=== PATIENT | female | born 1970 | race Caucasian/White ===

== ENCOUNTER → 2017-05-15 | Outpatient (CLI) | payer BC ==
[~2017-05-15] MED LIST: ASCO500T16 PO; MULTTAB58 PO
--- NOTE | 2017-05-16 13:21 | MAMMOGRAPHY REPORT ---
BILATERAL DIGITAL SCREENING MAMMOGRAM TOMOSYNTHESIS WITH CAD: 05/15/2017 CLINICAL HISTORY: Routine screening. Patient has no complaints. TECHNIQUE: Breast tomosynthesis in addition to standard 2D mammography was performed. Current study was also evaluated with a Computer Aided Detection (CAD) system. COMPARISON: Comparison is made to exams dated: 05/25/2015 mammogram, 05/24/2014 mammogram, 04/28/2013 m ammogram, 04/27/2012 mammogram, 04/25/2011 mammogram, and 02/05/2010 mammogram - [facility] enter. BREAST COMPOSITION: The tissue of both breasts is heterogeneously dense, which may obscure small mas ses. FINDINGS: There is a round partially circumscribed and partially obscured 6 mm mass seen within the right 12:00 breast on the tomosynthesis images, for which ultrasound and possible additional spot com pression views are recommended for further evaluation. This may represent a cyst. The remainder of both breasts are stable compared to prior exams, without suspicious masses, calcific ations, or areas of architectural distortion noted. IMPRESSION: ACR BI-RADS CATEGORY 0: INCOMPLETE EVALUATION: NEED ADDITIONAL IMAGING EVALUATION Right 12:00 breast mass, for which additional imaging evaluation is recommended. The patient will be called to schedule an appointment. Approximately 10% of breast cancers are not detected with mammography. A negative mammographic report should not delay biopsy if a clinically suggestive mass is present. Sandra Quevedo M.D. /:05/15/2017 16:44:39 Glass Smoother: Yanna BONILLA(Andreas)(Sid), [facility] letter sent: Addl Imaging 0 BI-RADS Code: ACR BI-RADS Category 0: Incomplete Evaluation: Need Additional Imaging Evaluation
== END | disposition home or self-care (01) ==
LOC: C.MAMM 15:05
PROVIDERS: ATTEND Family Medicine
DX: Z12.31 Encounter for screening mammogram for malignant neoplasm of breast (principal); N63 Unspecified lump in breast

== ENCOUNTER → 2017-05-20 | Outpatient (CLI) | payer BC | END | disposition home or self-care (01) | LOC: C.PAPS 11:44 | PROVIDERS: ATTEND Physician Assistant | DX: Z01.419 Encounter for gynecological examination (general) (routine) without abnormal findings (principal) ==

== ENCOUNTER → 2017-05-27 | Outpatient (CLI) | payer BC ==
--- NOTE | 2017-05-27 14:38 | MAMMOGRAPHY REPORT ---
ULTRASOUND OF RIGHT BREAST: 05/27/2017 CLINICAL HISTORY: 47-year-old woman called back from screening mammography for a partially circumscri bed and obscured round versus oval 6 mm mass in the 12:00 middle one third of the right breast. COMPARISON: Comparison is made to exams dated: 05/15/2017 mammogram, 05/25/2015 mammogram, 05/24/2014 ma mmogram, 04/28/2013 mammogram, 04/27/2012 mammogram, and 04/25/2011 mammogram - [facility] nter. FINDINGS: Targeted ultrasound was performed in the 11:00, 12:00 and 1:00 axes of the right breast to evaluate for the 6 mm circumscribed mass, best seen on the tomosynthesis images. In the 12:00 breas t, 2 cm from the nipple, there is a parallel circumscribed predominantly anechoic oval mass measuring 6.8 x 3.2 x 6.6 mm. There is thin internal nonvascular septation, and this mass most likely represe nt a complicated cyst. It correlates well in size, shape and location of the mammographic mass. Giv en that it does not fit all of the criteria for a benign simple cyst, recommend a short interval foll ow-up diagnostic mammogram and repeat targeted ultrasound showed ensure stability in 6 months. Anoth er option of fine-needle aspiration and post-aspiration mammography was discussed with the patient, b ut we will opt to follow the cyst at this time. IMPRESSION: ACR-BI-RADS CATEGORY 3: PROBABLY BENIGN - FOLLOW-UP RECOMMENDED The 6 mm partially circumscribed mass in the 12:00 right breast correlates with a probable complicate d cyst on ultrasound, containing a few internal thin nonvascular septations. A short interval follow -up right diagnostic mammogram including tomosynthesis images and repeat targeted ultrasound is recom mended to ensure stability in 6 months. These results and recommendations were discussed with the patient at the time of the exam. She tenta tively scheduled the follow-up appointment prior to leaving our department. Pebbles Anderson M.D. ay/:05/27/2017 11:59:14 Gas And Oil Checker: Yanna BONILLA(Andreas)(Sid), [facility] letter sent: Follow Up Recommended 3 BI-RADS Code: ACR-BI-RADS Category 3: Probably Benign
== END | disposition home or self-care (01) ==
LOC: C.MAMM 10:50
PROVIDERS: ATTEND Family Medicine
DX: N63 Unspecified lump in breast (principal)

== ENCOUNTER → 2017-05-29 | Outpatient (CLI) | payer BC | END | disposition home or self-care (01) | LOC: C.PATHSPEC 17:32 | PROVIDERS: ATTEND Obstetrics & Gynecology | DX: N84.1 Polyp of cervix uteri (principal) ==

== ENCOUNTER → 2017-09-20 | Outpatient (CLI) | payer BC ==
[2017-09-20 11:07] LABS: BLOOD UREA NITROGEN 20 mg/dl (7-18); BUN/CREATININE RATIO 23.2 (10-20); CALCIUM 8.9 mg/dl (8.5-10.1); CARBON DIOXIDE 29 mmol/L (21-32); CHLORIDE 106 mmol/L (98-107); CREATININE 0.84 mg/dl (0.60-1.20); GLUCOSE 101 mg/dl (70-99); POTASSIUM 3.7 mmol/L (3.5-5.1); SODIUM 140 mmol/L (136-145)
== END | disposition home or self-care (01) ==
LOC: C.LABBC 09:29
PROVIDERS: ATTEND Family Medicine
DX: R63.1 Polydipsia (principal)

== ENCOUNTER → 2017-12-12 | Outpatient (CLI) | payer BC ==
--- NOTE | 2017-12-12 13:36 | MAMMOGRAPHY REPORT ---
UNILATERAL RIGHT DIGITAL DIAGNOSTIC MAMMOGRAM TOMOSYNTHESIS WITH CAD AND TARGETED RIGHT ULTRASOUND: CLINICAL HISTORY: Short interval follow-up of right breast mass. TECHNIQUE: Breast tomosynthesis in addition to standard 2D mammography was performed. Current study was also evaluated with a Computer Aided Detection (CAD) system. Right CC and MLO 2-D and tomosynthe sis images were obtained. COMPARISON: Comparison is made to exams dated: 05/27/2017 ultrasound, 05/15/2017 mammogram, 05/25/2015 m ammogram, 05/24/2014 mammogram, 04/28/2013 mammogram, and 04/27/2012 mammogram - [facility] enter. BREAST COMPOSITION: The tissue of the right breast is heterogeneously dense, which may obscure small masses. FINDINGS: Round partially circumscribed and partially obscured 6 mm mass in the right 12:00 breast, b est seen on the tomosynthesis images, is stable mammographically compared to the May 2017 exam. T he remainder of the right breast is stable mammographically compared to prior exams, without suspicio us masses, calcifications, or areas of architectural distortion noted. Targeted ultrasound was performed of the right 12:00 breast in the region of the mammographic mass. In the right breast at 12:00, 2 cm from the nipple, again noted is a circumscribed anechoic cystic ma ss which measures 7 x 3 x 7 mm. A few thin internal septations are seen within the mass. No interna l solid component is evident. The mass is stable in size and appearance compared to the May 2017 exam. This correlates with the stable mammographic mass and is consistent with a benign cyst. IMPRESSION: ACR BI-RADS CATEGORY 2: BENIGN, TARGETED ULTRASOUND ACR BI-RADS CATEGORY 2: BENIGN Circumscribed anechoic 7 mm mass in the right 12:00 breast is stable dating back to the May 2017 e xam, and is benign and compatible with a cyst. There is no mammographic or targeted sonographic evid ence of malignancy. Return to annual mammogram screening schedule is recommended, due May 2018. The patient has been verbally notified of the results. Approximately 10% of breast cancers are not detected with mammography. A negative mammographic report should not delay biopsy if a clinically suggestive mass is present. Sandra Quevedo M.D. /:12/12/2017 08:18:49 Transition Manager: Gali Watson, [facility] letter sent: Normal /2 BI-RADS Code: ACR BI-RADS Category 2: Benign Ultrasound BI-RADS: ACR BI-RADS Category 2: Benign
== END | disposition home or self-care (01) ==
LOC: C.MAMM 07:58
PROVIDERS: ATTEND Family Medicine
DX: R92.8 Other abnormal and inconclusive findings on diagnostic imaging of breast (principal); N63.10 Unspecified lump in the right breast, unspecified quadrant